=== PATIENT | male | born 1965 | race Caucasian/White ===

== ENCOUNTER 2017-10-25 07:19 | Emergency (ER) | payer OTHER ==
[2017-10-25] MEDS: KETOROLAC 60 MG/2 ML VIAL (J1885) IM (07:51)
== END 2017-10-25 08:05 | disposition home or self-care (01) ==
LOC: M ED 07:19
DX: S39.012A Strain of muscle, fascia and tendon of lower back, initial encounter (principal); M51.36 Other intervertebral disc degeneration, lumbar region; X50.0XXA Overexertion from strenuous movement or load, initial encounter; Y92.89 Other specified places as the place of occurrence of the external cause; I10 Essential (primary) hypertension; E78.9 Disorder of lipoprotein metabolism, unspecified; E11.9 Type 2 diabetes mellitus without complications; F17.210 Nicotine dependence, cigarettes, uncomplicated
CPT/HCPCS: J1885

== ENCOUNTER 2018-05-01 10:35 | Emergency (ER) | payer OTHER ==
[~2018-05-01] VITALS: Ht 180.3 cm; Wt 103.2 kg
[2018-05-01] MEDS ORDERED: LISI40TA PO (11:33)
[2018-05-01] MEDS ORDERED: SIMV80TA13 PO (11:33)
[2018-05-01] MEDS ORDERED: METF750T PO (11:33)
[2018-05-01] MEDS ORDERED: methylPREDNISolone INJ 125 MG/2 ML VIAL (J2930) IM ONE (12:15)
[2018-05-01] MEDS ORDERED: KETOROLAC 60 MG/2 ML VIAL (J1885) IM ONE (12:15)
--- NOTE | 2018-05-01 13:15 | REP ---
CT LUMBAR SPINE WITHOUT CONTRAST: HISTORY: Left sciatic pain. COMPARISON: MR 11/06/2009. There is no disc bulge or herniation at the L1-2 through L3-4 levels. The nerves exit the neural foramina without compression. A diffuse disc bugle is present at the L4-5 level. There is minimal compression of the thecal sac. The L4 nerves exit the neural foramina without compression. A diffuse disc bugle is present at the L5-S1 level. There is minimal compression of the thecal sac. There is hypertrophy of the posterior articulating facets. The L5 nerves exit the neural foramina without compression. A left laminectomy defect is present. The L5-S1 intervertebral disc is decreased in height consistent with disc degeneration. There is no subluxation. IMPRESSION: Diffuse disc bugles at the L4-5 and L5-S1 levels with minimal thecal sac compression. A left laminectomy defect is present at the L5-S1 level. There is no significant change compared to the previous study. Electronically Signed by Zaid Scott MD 05/01/2018 01:19 P
[2018-05-01] MEDS ORDERED: CYCL10TA PO (13:41)
--- NOTE | 2018-05-01 13:47 | REP ---
LEFT LOWER EXTREMITY DOPPLER VENOUS ULTRASOUND: 05/01/2018. Clinical history: Left calf pain, evaluate for possible DVT. Comparison: No prior study. Technique: The deep venous system of the left lower extremity is evaluated with nails scale imaging, compression ultrasound, color imaging and duplex Doppler interrogation. Examination from the groin through the popliteal fossa into the proximal calf. Findings: There is full compressibility from the common femoral vein in the inguinal region through the popliteal vein. Color imaging confirms patency throughout the course of the deep venous system. There is respiratory variation and augmented flow at all levels. 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 This is an anatomic normal variation Impression: 1. No Doppler venous ultrasound evidence of DVT in the left lower extremity. Electronically Signed by Zach Mensah MD 05/01/2018 05:57 P
[2018-05-01 13:48] VITALS: BP 138/92
== END 2018-05-01 13:50 | disposition home or self-care (01) ==
LOC: M ED 10:35
DX: M54.16 Radiculopathy, lumbar region (principal); M51.26 Other intervertebral disc displacement, lumbar region; M51.27 Other intervertebral disc displacement, lumbosacral region; M48.04 Spinal stenosis, thoracic region; M48.07 Spinal stenosis, lumbosacral region; E11.9 Type 2 diabetes mellitus without complications; I10 Essential (primary) hypertension; E78.5 Hyperlipidemia, unspecified; Z79.899 Other long term (current) drug therapy; Z79.84 Long term (current) use of oral hypoglycemic drugs
CPT/HCPCS: 72131; 93971; 96372; 99283; J1885; J2930

== ENCOUNTER → 2018-06-26 | Outpatient (REF) | payer OTHER ==
[~2018-06-26] MED LIST: CYCL10TA PO; LISI40TA PO; METF750T PO; SIMV80TA13 PO
[2018-06-26 17:10] LABS: INR 0.95; PROTHROMBIN TIME 12.8 SECONDS (12.1-14.4)
[2018-06-26 17:11] LABS: PARTIAL THROMBOPLASTIN TIME 33.7 SECONDS (25.4-37.6)
== END ==
LOC: M LABDRAW1 16:01
PROVIDERS: ATTEND Physical Medicine & Rehabilitation
DX: Z01.812 Encounter for preprocedural laboratory examination (principal)

== ENCOUNTER → 2018-11-23 | Outpatient (CLI) | payer OTHER ==
[~2018-11-23] MED LIST changes: -METF750T PO; +METF750T36 PO; +SIMV40TA2 PO
[2018-11-23 14:02] LABS: BLOOD UREA NITROGEN 15 MG/DL (7-18); CALCIUM LEVEL 9.5 MG/DL (8.5-10.1); CARBON DIOXIDE LEVEL 21 MEQ/L (21-32); CHLORIDE LEVEL 106 MEQ/L (98-107); CREATININE FOR GFR 1.11 MG/DL (0.70-1.30); GLOMERULAR FILTRATION RATE > 60.0 (>56); GLUCOSE, FASTING 179 MG/DL (70-100); POTASSIUM SERUM 4.5 MEQ/L (3.5-5.1); SODIUM LEVEL 137 MEQ/L (136-145)
--- NOTE | 2018-11-24 16:50 | ECGEPIP ---
[facility] Test Date: 2018-11-23 Pat Name: TERRANCE LEDEZMA Department: Room: - Gender: Male Leasing Specialist: MACIEL : 1965 Requested By: Donald Cummings Order Number: [id number] Reading MD: Ran Chowdhury Measurements Intervals [place] Rate: 74 P: 26 SC: 151 QRS: -11 QRSD: 88 T: 14 QT: 350 QTc: 391 Interpretive Statements SINUS RHYTHM MINIMAL VOLTAGE CRITERIA FOR LVH Poor R wave progression No prior ECG available for comparison at the time of interpretation. Electronically Signed on 11-24-2018 16:50:07 EDT by Ran Chowdhury
== END ==
LOC: M LAB 13:02
PROVIDERS: ATTEND Orthopaedic Surgery
DX: Z01.818 Encounter for other preprocedural examination (principal)

== ENCOUNTER 2018-12-06 06:00 | Inpatient (IN) | payer OTHER ==
--- NOTE | 2018-11-29 13:43 | HPE ---
DATE OF ADMISSION: 12/06/2018 HISTORY OF PRESENT ILLNESS: Mr. Johnson is a pleasant 53-year-old male known to me for back discomfort and recurrent disc herniation at L5-S1 producing left leg symptoms. Mr. Johnson has consented for L5-S1 unilateral left laminectomy with posterior spinal fusion plus or minus use of transforaminal lumbar interbody fusion (TLIF) cage. Medically, he is denying any difficulties. His imaging is consistent with herniated disc recurrence L5-S1 left side, facet arthropathy, transitional motion segment below L5-S1, left leg radiculopathy which has failed to improve with conservative management. ALLERGIES: None known to drugs. MEDICATION LIST: Includes: - gabapentin 100 mg - naproxen 500 mg - cyclobenzaprine HCl 5 mg/versus 10 mg - metformin HCl 500 mg MEDICAL PROBLEM LIST: Includes low back pain, left leg radiculopathy, recurrent disc herniation L5-S1, pure hypercholesteremia, and hypertension. SURGICAL HISTORY: Prior back surgery. FAMILY HISTORY: Is positive for hypertension, hypercholesteremia, thyroid disease on the mother's side. The patient is a former smoker. Used to smoke a pack a day. Has not smoked in years. Denies ethanol intake or illicit drugs. REVIEW OF SYSTEMS: Denies chest pain, shortness of breath, dyspnea on exertion, fever, chills, malaise, upper respiratory or urinary tract symptoms. LABORATORIES: Were reviewed, acquired 11/27/2018. Glucose fasting 179. The remaining laboratories were unremarkable. Electrocardiogram (EKG) results per Dr. Chowdhury. Sinus rhythm, minimal voltage criteria. Date of examination 11/23/2018. PHYSICAL EXAMINATION: He is a pleasant white male in no acute distress. Alert and oriented times three. Mood and affect are appropriate. Height 71 inches, weight 198.6, temperature 97.8, blood pressure (BP) 118/79, respiration 16, pulse 81. Normocephalic. Neck supple with negative jugular venous distention (JVD) or bruits. Chest: Rises symmetrically. Regular rate and rhythm. Lungs: Clear to auscultation. Bowels sounds times four, soft, nontender. Left straight leg raises positive, right straight leg raises negative. Bilateral extremity: No edema. Skin is intact. Benign noninfectious-looking. There are no skin defects to his lumbar spine with old scar noted. IMPRESSION: 1. Lumbar back pain, left lower extremity radiculopathy with recurrent herniated disk at L5-S1 left side, facet hypertrophy, transitional motion segment below L5-S1. 2. The patient has consented for a L5-S1 unilateral left laminectomy with posterior spinal fusion plus/minus TLIF cage. 3. Medically denies any issues that are uncontrolled. 4. The patient will arrive with brace as ordered. This is a [place] LSO 637. 5. On-call to operating room (OR), 2 grams intravenous (IV) Kefzol in OR. Sequential compression device (SCD) and thromboembolic deterrents (TEDs) in OR. MTDD
[~2018-12-06] VITALS: Ht 180.3 cm; Wt 103.0 kg
[~2018-12-06 06:00] MED LIST changes: +LR 1,000 ML IV ONE
[2018-12-06] MEDS ORDERED: PROPOFOL 500 MG/50 ML VIAL As Ordered ONE ×4 (06:49→13:41)
[2018-12-06] MEDS ORDERED: KETAMINE HCL 200 MG/20 ML VIAL As Ordered ONE (06:49)
[2018-12-06] MEDS ORDERED: fentaNYL 250 MCG/5 ML INJECTION (J3010) As Ordered ONE (06:49)
[2018-12-06] MEDS ORDERED: LIDOCAINE 2% INJ 100 MG/5 ML SDV (FOR ANES.) As Ordered ONE ×2 (06:50→12:06)
[2018-12-06] MEDS ORDERED: MIDAZOLAM INJ 5 MG/ML VIAL (J2250) As Ordered ONE (06:50)
[2018-12-06] MEDS ORDERED: dexameTHASONE 4 MG/ML 1ML VIAL (J1100) As Ordered ONE (06:50)
[2018-12-06] MEDS ORDERED: ROCURONIUM BROMIDE 50 MG/5 ML VIAL As Ordered ONE ×2 (06:50→12:06)
[2018-12-06] MEDS ORDERED: PROPOFOL 200 MG/20 ML VIAL As Ordered ONE (06:50)
[2018-12-06] MEDS ORDERED: ONDANSETRON 4MG/2ML VIAL (J2405) As Ordered ONE (06:50)
[2018-12-06] MEDS ORDERED: SUGAMMADEX SODIUM 500 MG/5 ML VIAL (BRIDION) As Ordered ONE (06:54)
[2018-12-06] MEDS ORDERED: TRANEXAMIC ACID 100 MG/ML 10ML VIAL As Ordered ONE (07:10)
[2018-12-06] MEDS ORDERED: EPINEPHrine INJ 1 MG/ML 1ML AMP As Ordered ONE (07:11)
[2018-12-06] MEDS ORDERED: PERCOCET 5MG/325MG TAB PO ONE (07:15)
[2018-12-06] MEDS ORDERED: CelecoXIB 400 MG CAP PO ONE (07:15)
[2018-12-06] MEDS ORDERED: THROMBIN SOLN 20,000 UNITS KIT As Ordered ONE (07:16)
[2018-12-06] MEDS ORDERED: BUPIVACAINE HCL 0.5% 10 ML VIAL As Ordered ONE (07:16)
[2018-12-06] MEDS ORDERED: BUPIVACAINE/EPIN 0.25% 30 ML VIAL As Ordered ONE (07:16)
[2018-12-06] MEDS ORDERED: BUPIVACAINE LIPOSOME/PF 1.3% 20ML VIAL (13.3MG/ML)(EXPAREL)(C9290 PER1MG) As Ordered ONE (07:17)
[2018-12-06] MEDS ORDERED: VANCOMYCIN HCL 500 MG/10 ML VIAL (J3370) As Ordered ONE (07:17)
[2018-12-06] MEDS ORDERED: BACITRACIN PWD 50,000 UNITS VIAL As Ordered ONE (07:17)
[2018-12-06] MEDS ORDERED: ceFAZolin 2 GM/D5W 50 ML IV BAG (J0690 PER 500MG) As Ordered ONE (07:18)
[2018-12-06] MEDS ORDERED: PERCOCET 5MG/325MG TAB As Ordered ONE (07:25)
[2018-12-06] MEDS ORDERED: GABAPENTIN 300 MG CAP PO ONE (07:30)
[2018-12-06] MEDS ORDERED: HumaLOG INSULIN (NovoLOG) PER UNIT As Ordered ONE (07:32)
[2018-12-06] MEDS ORDERED: HumaLOG INSULIN (NovoLOG) PER UNIT SC ONE (07:45)
[2018-12-06] MEDS ORDERED: ceFAZolin 1GM INJ (J0690 PER 500MG) As Ordered ONE (09:08)
[2018-12-06] MEDS ORDERED: HumuLIN R (REGULAR) INSULIN (NovoLIN R) **100U/ML** PER UNIT As Ordered ONE (09:09)
[2018-12-06] MEDS ORDERED: HYDROmorphone HCL 2 MG/ML 1ML VIAL (J1170) As Ordered ONE (10:22)
--- NOTE | 2018-12-06 15:06 | REP ---
Partial lumbar spine series: Two views. History: Intraoperative filming. 2 minutes 3 seconds of fluoroscopy time is reported. Findings: A sequence of two last image hold fluoroscopically obtained spot radiographs document transpedicle screw and interconnecting nerissa fixation across the L4-5 level with a intervertebral disc spacer in place at L4-5. Electronically Signed by Griffin Barajas MD 12/06/2018 03:38 P
--- NOTE | 2018-12-06 15:08 | REP ---
Partial lumbar spine: Single view. History: Intraoperative film. Lumbar stenosis. Comparison radiograph is from July 15, 2006. Findings: A portable obtained cross-table lateral view of the lumbar spine is time stamped 09:14 a.m. This demonstrates an intraoperative probe at the dorsal aspect of the spinal canal at the level of the L4-5 intervertebral disc. Electronically Signed by Griffin Barajas MD 12/06/2018 03:38 P
[2018-12-06] MEDS ORDERED: ACETAMINOPHEN TAB 650MG DOSE (2X325MG) PO PRN (15:45)
[2018-12-06] MEDS ORDERED: D5W/LR 1,000 ML IV SCH (15:45)
[2018-12-06] MEDS ORDERED: CYCLOBENZAPRINE 10 MG TAB PO PRN (15:45)
[2018-12-06] MEDS ORDERED: PERCOCET 5MG/325MG TAB PO PRN (15:45)
[2018-12-06] MEDS ORDERED: HYDROMORPHONE HCL 0.5 MG/ 0.5 ML SYRINGE (J1170 PER 1) IV PRN ×2 (15:45)
[2018-12-06] MEDS ORDERED: oxyCODONE 5MG TAB PO PRN ×2 (16:00→18:15)
[2018-12-06] MEDS ORDERED: LR 1,000 ML IV SCH ×2 (16:00→18:15)
[2018-12-06] MEDS ORDERED: fentaNYL 100 MCG/2 ML INJECTION (J3010) IV PRN ×2 (16:00→18:15)
[2018-12-06] MEDS ORDERED: ONDANSETRON 4MG/2ML VIAL (J2405) IV PRN ×2 (16:00→18:15)
[2018-12-06] MEDS ORDERED: METOCLOPRAMIDE INJ 10MG/2ML VIAL (J2765) IV PRN ×2 (16:00→18:15)
[2018-12-06 17:15] VITALS: BP 137/93
[2018-12-06 17:45] VITALS: BP 137/92
[2018-12-06] MEDS ORDERED: PROMETHAZINE INJ 25 MG/ML VIAL (J2550) IV PRN (18:15)
[2018-12-06 18:45] VITALS: BP 141/90
[2018-12-06] MEDS ORDERED: GLUCAGON FOR INJ 1 MG VIAL (J1610) SC PRN (18:45)
[2018-12-06] MEDS ORDERED: GLUCOSE 4 GM CHEW TABLET PO PRN (18:45)
[2018-12-06] MEDS: HumaLOG INSULIN (NovoLOG) PER UNIT SC SCH (19:05)
[2018-12-06 20:20] VITALS: BP 141/94
[2018-12-06 20:45] VITALS: BP 143/95
[2018-12-06] MEDS ORDERED: HumaLOG INSULIN (NovoLOG) PER UNIT SC SCH (21:00)
[2018-12-06] MEDS: METAMUCIL (PSYLLIUM) PACKET PO SCH (21:00)
[2018-12-06] MEDS: PERCOCET 5MG/325MG TAB PO PRN (21:32)
[2018-12-06] MEDS: GABAPENTIN 100 MG CAP PO SCH (21:32)
[2018-12-07 00:18] VITALS: O2SAT 97
[2018-12-07 02:30] VITALS: BP 141/89
[2018-12-07] MEDS: PERCOCET 5MG/325MG TAB PO PRN (04:34)
[2018-12-07 06:00] VITALS: BP 141/92
[2018-12-07 06:19] VITALS: BP 141/92
[2018-12-07 06:26] VITALS: BP 140/88
[2018-12-07] MEDS ORDERED: PERC5TAB12 PO (07:27)
[2018-12-07] MEDS ORDERED: metFORMIN (GLUCOPHAGE) 500 MG TAB PO SCH (08:00)
[2018-12-07] MEDS ORDERED: metFORMIN XR 500MG TAB *GLUCOPHAGE XR PO SCH (09:00)
[2018-12-07] MEDS: HumaLOG INSULIN (NovoLOG) PER UNIT SC SCH ×2 (09:54→12:00)
[2018-12-07] MEDS: METAMUCIL (PSYLLIUM) PACKET PO SCH (09:55)
[2018-12-07] MEDS: GABAPENTIN 100 MG CAP PO SCH (09:55)
--- NOTE | 2018-12-07 12:10 | RO ---
DATE OF PROCEDURE: 12/06/2018 PREOPERATIVE DIAGNOSIS: Recurrent disc herniation with left lower extremity radiculopathy at L5-S1 in the setting of transitional lumbosacral anatomy as well as lumbar spondylosis with left lower extremity radiculopathy. POSTOPERATIVE DIAGNOSIS: Recurrent disc herniation with left lower extremity radiculopathy at L5-S1 in the setting of transitional lumbosacral anatomy as well as lumbar spondylosis with left lower extremity radiculopathy. PROCEDURE PERFORMED: Left L5 unilateral laminectomy with re-exploration of previous discectomy and decompression of the thecal sac and exiting and traversing nerve root, S1 left unilateral laminectomy with re-exploration of the previous discectomy site as well as decompression of the traversing S1 nerve root and removal of some additional disc material. Modifier 22 appended to these codes because of their re-exploration, which was significantly more involved, it involved debridement of scar tissue in the process of decompression. Posterior interbody combined fusion with intertransverse and interbody technique L5-S1 including intervertebral endplate preparation as well as exposure of the transverse processes bilaterally. Posterior non-segmental pedicle screw instrumentation L5 to S1 bilaterally, use in application of interbody biomechanical device 4WEB titanium cage with bone autograft composite, harvest and placement of right iliac crest bone graft from a separate fascial incision. SURGEON: Dr. Whitaker FUEL OIL CLERK: Akira Vance, physician publisher assistant. Physician publisher assistant Korina Oliver also participated in an observational second assist capacity. ANESTHESIA: Dr. Moreno, general. Estimated blood loss less than 200 mL, replaced with crystalloid. No complications. INDICATIONS: Mr. Johnson is a 53-year-old gentleman who had a previous discectomy some years ago, did well for a number of years, afterwards returned to work but unfortunately developed a recurrent herniation. It was felt the recurrent herniation was largely attributable to abnormal motion at his transitional motion segment L5-S1. He had persisting symptoms for a number of months despite conservative management and has elected for operative intervention. Consent reviewed in detail including marlen discussion of the pathology involved, the procedure proposed, alternatives including doing nothing and risks including not limited to pain, failure, infection, bleeding, blood loss, incomplete relief of symptoms, nerve injury, need for additional surgery, paralysis and other issues. The patient understands and agrees to proceed with surgery. OPERATIVE COURSE: He was identified in the holding area. Site side verified. I again reviewed the consent with the patient and talked about the procedure what we would be doing. He was brought to the operating room where general endotracheal anesthesia was administered and then we positioned on the Andrade frame for exposure of the lumbar spine. He was carefully padded. Knees slightly flexed. Once I and the institutional research director were comfortable with the patient's positioning, he was sterilely prepped and draped in usual fashion. Next, the first portion of procedure I did accomplish using loupe magnification as well as a headlamp. I stood on the patient's left side, Mr. Vance on the right side. Although, I did alternate sides from one portion of the procedure to the next. His old incision was identified and outlined with a marking pen extended proximally and distally for the fusion procedure, infiltrated with 0.25% Marcaine with epinephrine and made with a #10 blade knife. Dissection continued through subcuticular tissues to the posterior lumbar fascia. The patient's dissection once the lumbar fascia was exposed continued reflecting sharply the posterior lumbar fascia off of the spinous process and then dissecting using Bovie cautery down the spinous process of L5 as well as the transitional S1 over the L5-S1 facet complex and exposing the L5 lamina. A divot was then drilled in the L5 lamina using the high-speed bur. A Salazar-Obi probe was placed in the divot and we obtained a cross-table lateral x-ray to verify our level. Once this was accomplished, we switched sides and the similar dissection was done on the contralateral right side and Mr. Vance utilized Shira retractors to help expose one as I dissected the transverse processes on the patient's left side. Then, we again switched sides and we finished the intertransverse dissection on the patient's right side as well. Next, I utilized Leksell's to remove the left facet complex, especially the inferior facet of 5 on the patient's left side. Once this was accomplished, my loupe and headlamp were removed and the sterilely draped microscope was brought in. Mr. Vance utilized oculars on the right side of the scope, I on the left side of the scope. Using the scope facilitated safe use with a high-speed bur. I utilized the high-speed bur as well as a Lukens trap to collect bur millings and continued the left unilateral laminectomy superiorly through the lamina of 4 on the left side and removed additional remnants of the facet complex including both of the superior facet of S1 extending through the bare area of S1 to allow exposure of less scar tissue. Significant scar was debrided from the previous laminotomy defect using the hot knife and curettes and pituitaries. The dissection continued through the facet complex so that I could expose the exiting nerve root and continued medially with blunt dissection using a Salazar-Obi probe over the disc annulus complex, which seemed to be a hard posterior disc bulge to the left of midline. I traced this dissection along the traversing S1 nerve root and palpated the S1 pedicle as well as superiorly palpating the L5 pedicle and palpating the neural foramina. Next, once I could adequately and safely expose the disc annulus scar complex, I opened the annulus complex using a #11 blade knife and removed some friable and some hard disc material using Sherman and regular pituitaries. I then utilized a 7 mm entertainment reporter to open the disc space. The disc space was quite mobile. We then proceeded through conical nadja through a size 8 mm. I then utilized rasps and ring curettes to further debride cartilaginous endplate and utilized pituitaries to remove additional disc material. Next, we then utilized endplate nadja through a size 10 mm shaver, which seemed to fit appropriately. Next, I then impacted a 10 mm sounding device, a 10 x 30 sounding device into the interspace and that seemed to fit securely as well. At this stage, the operating microscope was brought out from the operating field so that we could bring in the C-arm. Next, I re-gowned with lead as did Mr. Vance as well as my loupe and headlamp. Next, once this accomplished we utilized the C-arm to visualize the sounding device in the interspace and it seemed to fit appropriately in the AP and lateral plane. Next, once this was accomplished we removed that device and I placed pedicle screws on the patient's right side at the right L5 and the right S1 pedicle. This was accomplished by drilling mammillary process, installing the pedicle finder, then utilizing a ball-tipped probe to verify pedicle placement, followed by measuring off the ball-tip probe to predict screw length, followed by use of the tap. We utilized a 7.0 tap at the S1 level because of large pedicle, and I then again used the ball-tipped probe to verify pedicle integrity of the pedicle diaz as well as anteriorly. I selected a 50 mm screw to the S1 level. The screw was placed and verified fluoroscopically. Next, we did obtain bone graft through a separate fascial incision from the right posterior-superior iliac spine using Grullon curettes. Once this bone graft had been harvested, we irrigated including irrigation with tranexamic acid (TXA) solution for hemostasis and placement of thrombin Gelfoam. Then, we closed the fascial incision over the bone graft harvest site. Additionally, we had obtained some morselized graft from the bur millings in the [facility] trap as well as debridement of facet complexes. That local bone was mixed with 15 mL of crushed cancellus and demineralized bone matrix putty. The L5 pedicle was then cannulated in a similar fashion including use of the ball-tipped guide both after finding the pedicle, tapping the pedicle and then we placed a 45 mm screw, 7.0 screw at the L5 level on the right, verified position fluoroscopically. We placed a connecting nerissa and end caps and distracted across the connecting nerissa to facilitate easier access to the interspace at the laminectomy site. Once this was accomplished, we turned attention back to the interspace where I removed additional disc material, rasps with ring curettes and a rasp. Next, the 10 mm height x 11 mm wide x 30 mm depth 4WEB titanium cage was obtained. It was packed with iliac crest morselized graft and coated with demineralized bone matrix putty. I also placed additional iliac crest bone graft into the interspace site using the Iraqi forceps. I placed additional demineralized bone matrix into the interspace site. I spun an 8 mm entertainment reporter in the interspace to disperse the implanted bone graft around the interspace. I then obtained the non-trial cage. Mr. Vance retracted using the Sukhjinder retractor and I then implanted the cage into the interspace on the left. Next, placement of this cage was verified fluoroscopically in the AP and lateral plane. Next, the distraction was removed from the contralateral right side and I compressed across the right pedicle screws exchanging the 45 nerissa for a 40 nerissa. The end caps were locked using the counter torque device. The transverse processes were decorticated and I placed iliac crest bone graft over the transverse processes after irrigation. Next, on the patient's left side, we now placed pedicle screws on the left at L5 and S1. Those pedicle screws were placed in a similar fashion to the contralateral side with a 50 mm, 7.5 screw was placed at the sacral level. This included use of the ball-tipped guide, tap and pedicle finders, and at that the L5 level on the left we placed a 45 mm screw again, which included use of the pedicle finder ball-tip, the tap, again the ball-tip and placement of the screw. We verified pedicle screw placement in AP, lateral and screw on phos fused through the screws were appropriately placed. I was also able to palpate around the pedicles with a Salazar-Obi probe on the left side due to the exposure. Next, once this was accomplished. Mr. Vance utilized the Shira retractors to expose over the transverse processes, which were again decorticated. I placed iliac crest bone graft over the transverse processes on the patient's left side. Next, we had also irrigated and let stand TXA solution in the laminectomy site. We let that stand for 1 minute. Next, we also irrigated with saline solution. Next, the connecting nerissa 35 mm was placed on the patient's left side. I compressed across the pedicle screws, locked the end caps using a counter torque device. At this stage, the pedicle screw caps were packed with vancomycin powder and the vancomycin was placed around the pedicle screws bilaterally. Next, remaining demineralized bone matrix putty mixed with the local graft and remaining iliac crest graft was placed on the patient's right side, the intertransverse place around the pedicle space and around the pedicle screws and in the lateral interlaminar space to assist with fusion. Next, final fluoroscopic images in AP and lateral plane were obtained and reflected good position of the hardware. Next, we placed a 7 flat drain exiting superior laterally through a separate incision made with a #11 blade. Next, this was placed into the laminectomy side of the dissection to prevent hematoma formation. Next, #1 as well as #0 Vicryl stitch was utilized to close the posterior lumbar fascia. Deep dermis was reapproximated with interrupted stitch. Prineo dressing was applied on the skin. Separate dressing was applied over the drain site, which exited just lateral to the Prineo dressing. The patient was then able to be log-rolled to the hospital bed, extubated and moved to the recovery room in good condition where he was appreciated to be moving all four extremities. Marysol Venturaamilcar participated in the entirety case in the capacity of first aid officer. Marysol Escobarnancy also scrubbing in at the time of pedicle screw placement in an observatory capacity. Next, for further details please refer to medical record.
== END 2018-12-07 12:50 | disposition home or self-care (01) | DRG 304 ==
LOC: M OR 06:00 → M MS5PR 17:00
PROVIDERS: ADMIT Orthopaedic Surgery; ATTEND Orthopaedic Surgery
PROC: 0SG307J Fusion of Lumbosacral Joint with Autologous Tissue Substitute, Posterior Approach, Anterior Column, Open Approach (ICD-10-PCS; principal; 2018-12-06 07:30)
DX: M51.17 Intervertebral disc disorders with radiculopathy, lumbosacral region (principal); I10 Essential (primary) hypertension; E78.00 Pure hypercholesterolemia, unspecified; M47.26 Other spondylosis with radiculopathy, lumbar region; Z79.84 Long term (current) use of oral hypoglycemic drugs; Z79.899 Other long term (current) drug therapy; Z87.891 Personal history of nicotine dependence

== ENCOUNTER → 2022-10-19 | Outpatient (REF) ==
[~2022-10-19] MED LIST changes: +CYCL-707 PO; -CYCL10TA PO; -LISI40TA PO; +LISI40TA4 PO; -LR 1,000 ML IV ONE; +PERC5TAB12 PO; -SIMV40TA2 PO; +SIMV40TA20 PO
== END ==
LOC: M LAB 09:23
PROVIDERS: ATTEND Nurse Practitioner Adult Health
DX: Z02.1 Encounter for pre-employment examination (principal)